=== PATIENT | male | born 1955 | race Caucasian/White ===

== ENCOUNTER 2017-12-19 12:15 | Emergency (ER) | payer SELFPAY ==
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
[2017-12-19] MEDS ORDERED: Ketorolac 60 MG/2 ML SDV IM ONE (13:04)
== END 2017-12-19 13:45 | disposition home or self-care (01) ==
LOC: LL.ED 12:15
DX: S20.212A Contusion of left front wall of thorax, initial encounter (principal); S10.91XA Abrasion of unspecified part of neck, initial encounter; I10 Essential (primary) hypertension; I45.10 Unspecified right bundle-branch block; J44.0 Chronic obstructive pulmonary disease with (acute) lower respiratory infection; F41.8 Other specified anxiety disorders; I49.3 Ventricular premature depolarization; F12.90 Cannabis use, unspecified, uncomplicated; V86.52XA Driver of snowmobile injured in nontraffic accident, initial encounter
CPT/HCPCS: 71101; 73010; 87070; 87205; 93005; 96372; 99284; J1885